=== PATIENT | male | born 1995 | race Caucasian/White ===

== ENCOUNTER 2023-12-19 22:19 | Emergency (ER) | payer BC, SELFPAY ==
[2023-12-19 22:23] VITALS: BP 110/71
[2023-12-19 22:25] VITALS: BMI 24.4
[2023-12-19 23:24] VITALS: BP 113/60
--- NOTE | 2023-12-19 23:54 | ED.GENMED ---
History of Present Illness
General
Chief Complaint: Abdominal Pain
Source: patient, spouse and family
Time Seen by Provider: 12/19/23 23:26
Travel History
Have you had any contact with someone who has COVID-19?: No
Do you have any symptoms of coronavirus? Fever > 100 degrees, chills, cough, shortness of breath, sore throat, loss of taste or smell, muscle aches, or headache?: No
History of Present Illness
History of Present Illness:
28-year-old male presents to the emergency room complaining of fever, abdominal pain. Patient has been feeling unwell for the past couple days. He had a temperature today up to 103. He was seen this morning at the [facility]
[place] where he had a fairly extensive workup including a CT of the abdomen and pelvis, labs. These were all unremarkable. At that time patient was having fairly significant right lower quad abdominal pain. Pain seems to be much less
significant now. He comes to the emergency room this evening because the recurrence of the fever. He denies any significant cough. He denies any dysuria. No rash.
Phy Exam
Physical Exam
Physical Exam:
General: Awake, Alert, Oriented X3. No acute distress.
Vitals: unremarkable
Head: Atraumatic
Eyes: Pupils equal, EOMI
Throat: Airway intact, no exudates
Neck: Trachea midline
Lungs: Clear and equal b/l
Heart: Regular rate, no murmurs
Abd: Soft, minimal tenderness palpation, No pulsatile mass
Neuro: Nonfocal
Skin: Warm, dry, no rash
Extremities: pulses equal b/l, no edema
Course
Orders/Labs/Results
Orders:
Orders
12/19/23 23:53
COVID-19 Antigen Urgent
Source: Nasal Swab
Influenza A+B Rapid Molecular Urgent
DINAH Source: Nasal Swab
Specimen Description:
Vital Signs
Initial and Last Documented VS:
Initial Vital Signs
Temp Pulse Resp BP Pulse Ox
98.8 F 88 16 110/71 98
12/19/23 22:23 12/19/23 22:23 12/19/23 22:23 12/19/23 22:23 12/19/23 22:23
Last Documented Vital Signs
Temp Pulse Resp BP Pulse Ox
99.2 F 88 16 113/60 99
12/19/23 23:28 12/19/23 22:23 12/19/23 22:23 12/19/23 23:24 12/19/23 23:24
MDM/Problems Addressed
Differential Diagnosis Includes:
COVID, influenza, other viral illness
MDM/Problems Addressed:
Patient presents with persistent fever. He had quite an extensive workup at [facility] which was unrevealing for the source of his abdominal pain and fever. Reviewing his discharge instructions which contained his lab results and CT report his labs
showed no significant abnormalities. CT reports showed an essentially normal CT of the abdomen pelvis. I noted that influenza and COVID test results were not in the report. Therefore we sent those tests and as it turns out the patient is positive
for influenza A. Recommend symptomatic care.
*Pulse Oximetry
Patient hypoxic: no
*Critical Care Note
Total Time (30-74mins, 75-104mins- exclusive of procedures): Not Applicable
ED Attending Note
-
Portions of this chart may have been created with voice recognition software.� Occasional wrong word or��sound alike� substitutions may have occurred due to the inherent limitations of voice recognition software.
Discharge Plan
Departure
Patient Disposition: Home (Routine Discharge)
Date of Disposition: 12/20/23
Time of Disposition: 00:47
Patient with high blood pressure during this ER visit?: No
Condition: Good
Discharge Problem:
Influenza A
Instructions: Flu, Adult ED
Prescriptions:
No Action
oxycodone-acetaminophen [Percocet] 1 EACH tablet
1 ea PO .Q6HR Qty: 5 0RF
Referrals:
Toshia Lopez, [Family Provider] -
Interventions
Interventions:
*Risk Screen - Suicide Last Done: 12/19/23 23:29
*General Assessment Last Done: 12/19/23 23:29
*Neglect/Abuse Screening Last Done: 12/19/23 23:29
*ED COVID-19 Vaccine History Last Done: 12/19/23 22:25
TI-Xsdysd-Gkaxypkqig Assessment Last Done: 12/19/23 23:29
Discharge Date and Time
Print Language: BARBADIAN
[2023-12-20] VITALS: BP 113/45
[2023-12-20 00:44] LABS: COVID-19 Antigen Negative (Negative)
[2023-12-20 01:07] VITALS: BP 105/64
== END 2023-12-20 01:12 | disposition home or self-care (01) ==
LOC: EMR 22:19
PROVIDERS: EMERGENCY PHYSICIAN Emergency Medicine; FAMILY PHYSICIAN Emergency Medicine
DX: J10.1 Influenza due to other identified influenza virus with other respiratory manifestations (principal)
CPT/HCPCS: 99283; 87502; 87811